=== PATIENT | male | born 1960 | race Caucasian/White ===

== ENCOUNTER 2020-08-06 14:49 | Outpatient (CLI) | payer MEDICARE, MEDICAID, SELFPAY ==
--- NOTE | ~2020-08-06 | XR_ITS ---
XR chest 2V DATE: 08/06/2020 15:20 INDICATION: Mid lower chest pain. Shortness of breath. History of COPD, congestive heart failure, ast hma, coronary artery disease TECHNIQUE: PA and lateral views COMPARISON: 04/10/2019 PA and lateral chest FINDINGS: There are multiple fractured sternal wires. Status post sternotomy/coronary artery bypass g raft surgery. Heart size appears within normal range. No hilar or mediastinal enlargement. No pulmonary infiltrate or consolidation, pleural effusion or pulmonary vascular congestion or pneumo thorax. IMPRESSION: Status post sternotomy/CABG; no active cardiopulmonary disease Reviewed, dictated and finalized at location A.
== END 2020-08-06 14:50 | disposition home or self-care (01) ==
LOC: ANHIMG 15:02
PROVIDERS: PCP Family Medicine; Visit Provider Family Medicine
DX: R10.13 Epigastric pain (principal); Z95.1 Presence of aortocoronary bypass graft
CPT/HCPCS: 71046

== ENCOUNTER 2020-09-05 01:00 | Outpatient (CLI) | payer MEDICARE, MEDICAID, SELFPAY ==
[2020-09-05 18:59] LABS: SARS-CoV-2 RNA PCR Negative
== END 2020-09-05 01:01 | disposition home or self-care (01) ==
LOC: ANHCOVIDDT 01:00
PROVIDERS: PCP Family Medicine; Visit Provider Internal Medicine Critical Care Medicine
DX: Z01.812 Encounter for preprocedural laboratory examination (principal); Z20.828 Contact with and (suspected) exposure to other viral communicable diseases
CPT/HCPCS: 87635; C9803; U0003

== ENCOUNTER 2020-09-08 08:22 | Outpatient (CLI) | payer MEDICARE, MEDICAID, SELFPAY ==
--- NOTE | 2020-10-02 16:15 | WPDSLEEPSTUD ---
Sleep Study Date of Study: 09/08/20 Ordering Provider: Nikky Lanza MD Interpreting Physician: Nikky Lanza MD Sleep Study Type: Polysomnogram Height: 1.7 m Weight: 92.986 kg Body Mass Index: 32.1 Neck Circumference: 50.8 cm Evangeline: 10 Reason for Sleep Study history of obstructive sleep apnea; recently acting out while he is asleep Sleep History Royal Schaefer Sr is a 59 yo man with a history of mild sleep apnea in the past which was not treated. He has hypertension and COPD with increasing shortness of breath. He is having a sleep study because he sleep has changed over the years, now acting out his dreams and with sleep talking. He describes his sleep as restless, with constant episodes of waking at night with heartburn, belching or coughing. He constantly has trouble sleeping with a cold. He rarely wakes up gasping for breath at night. He occasionally has breathing problems at night observed by others, occasionally sweats excessively at night, frequently wakes up with his heart pounding or beating irregularly at night, occasionally falls asleep during the day but never involuntarily or while driving. He does not have loss of muscle tone was strong emotion. He occasionally has daytime difficulties due to excessive sleepiness. he does not feel paralyzed on waking or falling asleep. He frequently has vivid dreamlike scenes upon awakening or falling asleep. He is never afraid to go to sleep. He does not have nightmares. He frequently remembers his dreams. He constantly has racing thoughts through his mind. He occasionally feels sad or depressed, frequently feels anxiety. He occasionally has muscular tension, occasionally notices parts of his body jerking, frequently kicks at night and frequently has crawling and aching feelings in his legs. He occasionally has morning jaw pain and occasionally grind his teeth during sleep. He frequently is bothered by pain during the day, occasionally is awakened by pain at night. He frequently wakes up feeling stiff in the morning was sore achy muscles and pain in the neck and spine. He has Palpitations, fatigue, takes antacids regularly, has memory problems and concentration difficulties. Normal bedtime is 9:00 p.m. falling asleep within 30 minutes to an hour typically waking 6 times at night staying awake for 3 minutes each time. When he awakens he goes to urinate. He wakes at 10:30 a.m. in the morning. We can schedule is the same. He does take short naps. A short nap is not refreshing. He is drowsy in the morning for 3 hours or longer. Habits: tobacco for 29 years, now 7 cigarettes a day; drinks a 6 pack of beer daily. [facility] Past Medical History Medical History (Updated 10/02/20 @ 16:32 by Nikky Lanza MD) Anxiety Arthritis Asthma Bronchitis CAD (coronary artery disease) CHF (congestive heart failure) COPD (chronic obstructive pulmonary disease) Dementia vascular Depression Diabetes Emphysema lung Farsightedness GERD (gastroesophageal reflux disease) GI bleed Gout History of Clostridium difficile infection History of tobacco abuse HTN (hypertension) Hyperlipidemia Hypersomnolence Inguinal hernia Irregular heart beat Kidney stone Left elbow fracture Myocardial infarction Obstructive sleep apnea Parasomnia Peripheral neuropathy Pneumonia Prepatellar bursitis right Psoriasis RLS (restless legs syndrome) Seasonal allergies Ulcer Surgical History Surgical History H/O angioplasty H/O right knee surgery History of cardiac cath Hx of CABG x4 Hx of heart artery stent x5 Social History Social History Smoking status: Current every day smoker Second hand tobacco smoke exposure: Yes Additional smoking assessment comments: 7 cigarettes per day Alcohol intake: current Gender identity (if verbalized by the patient): Male Medications
[2020-10-05 08:06] VITALS: BMI 32.1
== END 2020-09-08 08:23 | disposition home or self-care (01) ==
LOC: ANHCSM 08:22
PROVIDERS: PCP Family Medicine; Visit Provider Internal Medicine Critical Care Medicine
DX: G47.10 Hypersomnia, unspecified (principal); G47.50 Parasomnia, unspecified; G47.33 Obstructive sleep apnea (adult) (pediatric); G25.81 Restless legs syndrome; I25.10 Atherosclerotic heart disease of native coronary artery without angina pectoris; I11.0 Hypertensive heart disease with heart failure; I50.9 Heart failure, unspecified; I25.2 Old myocardial infarction; J44.9 Chronic obstructive pulmonary disease, unspecified; E11.42 Type 2 diabetes mellitus with diabetic polyneuropathy; E78.5 Hyperlipidemia, unspecified; K21.9 Gastro-esophageal reflux disease without esophagitis; L40.9 Psoriasis, unspecified; M10.9 Gout, unspecified; F17.200 Nicotine dependence, unspecified, uncomplicated; Z95.1 Presence of aortocoronary bypass graft; Z95.5 Presence of coronary angioplasty implant and graft; F03.90 Unspecified dementia, unspecified severity, without behavioral disturbance, psychotic disturbance, mood disturbance, and anxiety
CPT/HCPCS: 95810

== ENCOUNTER 2020-10-07 12:30 | Outpatient (CLI) | payer MEDICARE, MEDICAID, SELFPAY ==
--- NOTE | 2020-10-10 11:33 | WPDPFTINT ---
PFT Interpretation PFT Interpretation: This PFT met all criteria for ATS standards and reproducibility FEV/FVC post bronchodilator 57% FEV1 68% or 2.00 liters FVC 85% or 3.53 liters FVC improved by 310 ml and 10% TLC 115% RV 164% RV/TLC 53% DLCO 62% when adjusted for alveolar volume but not adjusted for hemoglobin Flow volume loops showed significant expiratory coving Impression: Moderate airflow obstruction with good response to bronchodilators, air trapping and mildly decreased diffusion capacity. This pattern is suggestive of COPD with possible Asthma component. Clinical correlation is advised.
--- NOTE | 2020-10-10 11:37 | WPDSIXMINUTE ---
Six Minute Walk Six Minute Walk: The patients O2 sats started at 98% and dropped as low as 96% Total walk distance 243.84 meters conclusion: This patient dose not qualify for home oxygen therapy.
== END 2020-10-07 12:31 | disposition home or self-care (01) ==
PROVIDERS: PCP Family Medicine; Visit Provider Internal Medicine Critical Care Medicine
DX: J43.9 Emphysema, unspecified (principal); R06.02 Shortness of breath; R94.2 Abnormal results of pulmonary function studies
CPT/HCPCS: 94060; 94618; 94726; 94729

== ENCOUNTER 2020-11-11 11:20 | Outpatient (NON) | payer MEDICARE, MEDICAID, SELFPAY ==
[2020-11-11 22:31] LABS: SARS-CoV-2 RNA PCR Positive
== END 2020-11-11 11:21 ==
LOC: ANHCOVIDDT 11:22
PROVIDERS: PCP Family Medicine; Visit Provider Family Medicine
DX: U07.1 COVID-19 (principal)
CPT/HCPCS: 87635; C9803; U0003

== ENCOUNTER 2021-02-10 12:36 | Outpatient (CLI) | payer MEDICARE, MEDICAID, SELFPAY ==
--- NOTE | ~2021-02-10 | US_ITS ---
EXAMINATION: US renal BI EXAM DATE: 02/10/2021 14:29 INDICATION: Increased urinary frequency. TECHNIQUE: Multiple grayscale and Doppler images of the kidneys were obtained (by a technologist who performed the scan) and subsequently reviewed. Comparison is made to prior examination from 06/27/2018. FINDINGS: Right kidney: There is normal contour and echogenicity. It measures 10.1 x 5.3 x 5.5 centimeters. T here are no focal renal lesions identified. There is no hydronephrosis. Left kidney: There is normal contour and echogenicity. It measures 11.5 x 4.9 x 5.8 centimeters. Th ere are no focal renal lesions identified. There is no hydronephrosis. Bladder unremarkable. Prevoid bladder volume was 91 mL, postvoid was 6 mm, minimal. IMPRESSION: 1. Sonographically unremarkable kidneys. 2. Minimal post void residual of 6 mm. Reviewed, dictated and finalized at location A.
== END 2021-02-10 12:37 | disposition home or self-care (01) ==
PROVIDERS: PCP Family Medicine
DX: R35.0 Frequency of micturition (principal)
CPT/HCPCS: 76775

== ENCOUNTER → 2021-03-12 07:22 | Outpatient (CLI) | payer MEDICARE, MEDICAID, SELFPAY ==
[2021-03-12 19:39] LABS: SARS-CoV-2 RNA PCR Negative
== END ==
PROVIDERS: PCP Family Medicine; Visit Provider Family Medicine
DX: R68.89 Other general symptoms and signs (principal); Z20.822 Contact with and (suspected) exposure to COVID-19
CPT/HCPCS: C9803; U0003; U0005

== ENCOUNTER 2021-05-24 12:51 | Emergency (ER) | payer MEDICARE, MEDICAID, SELFPAY ==
[2021-05-24 13:00] VITALS: BP 124/88; PULSE 117; RESP 16; TEMP 36; O2SAT 99
[2021-05-24 13:01] VITALS: BP 124/88; PULSE 117; RESP 16; TEMP 36; O2SAT 99
--- NOTE | 2021-05-24 13:36 | ED.SKABFB ---
HPI - Skin/Abscess/Foreign Bdy General Chief complaint: Skin/Abscess/Foreign Body Stated complaint: Rash on ankle and feet Time Seen by Provider: 05/24/21 13:17 Source: patient, family and RN notes reviewed Mode of arrival: ambulatory Limitations: no limitations History of Present Illness HPI narrative: Patient presents today complaint of painful rash to the bilateral lower legs and feet since this morning. Patient states when he went to bed last night he did not have a rash and it was present when he woke up this morning. He has been complaining of some pain to the lower legs and feet for the past approximately week. Denies itching. He has not tried any interventions at home for symptoms. Denies numbness or tingling. History of diabetes. He is on Plavix, but does not take any other blood thinners. He has been wearing tennis shoes and shorts. Denies any insect bites or stings. No new home products. No one else in the home with similar rash. MD complaint: rash Related Data Home Medications Medication Instructions Recorded Confirmed biotin 5,000 mcg SUBLINGUAL DAILY 10/09/19 10/09/19 cholecalciferol (vitamin D3) 5,000 unit PO DAILY 10/09/19 10/09/19 clopidogrel 75 mg PO DAILY 10/09/19 10/09/19 memantine 5 mg PO BID 10/09/19 10/09/19 metoprolol tartrate 50 mg PO Q12H 10/09/19 10/09/19 ropinirole 0.5 mg PO BID 10/09/19 10/09/19 tamsulosin 0.4 mg PO DAILY 10/09/19 10/09/19 albuterol sulfate INHALATION 12/22/19 atorvastatin 12/22/19 fenofibrate mg 12/22/19 finasteride mg 12/22/19 insulin glargine [Basaglar KwikPen unit SUBCUT 12/22/19 U-100 Insulin] metformin mg 12/22/19 terbinafine HCl mg 12/22/19 budesonide-formoterol HFA 160 2 puff INHALATION Q12H 08/21/20 mcg-4.5 mcg/actuation aerosol inhaler fluoxetine 20 mg capsule 40 mg PO DAILY cap 08/21/20 glipizide 5 mg tablet 15 mg PO BID tablet 08/21/20 icosapent ethyl 1 gram capsule 2 gm PO BID 08/21/20 isosorbide mononitrate 30 mg 60 mg PO DAILY 08/21/20 tablet,extended release 24 hr isosorbide mononitrate 60 mg 30 mg PO DAILY tablet 08/21/20 tablet,extended release 24 hr lorazepam 0.5 mg tablet 0.5 mg PO TID tablet 08/21/20 Becky 180 mg PO DAILY 05/24/21 05/24/21 aspirin 81 mg PO DAILY 05/24/21 05/24/21 cranberry 15,000 mg PO DAILY 05/24/21 05/24/21 empagliflozin [Jardiance] 25 mg PO DAILY 05/24/21 05/24/21 guaifenesin [Mucinex] 600 mg PO DAILY 05/24/21 05/24/21 mecobalamin (vitamin B12) 1,000 mcg SUBLINGUAL DAILY 05/24/21 05/24/21 melatonin 10 mg PO HS 05/24/21 05/24/21 nitroglycerin 0.4 mg SUBLINGUAL Q5M PRN 05/24/21 05/24/21 omeprazole 40 mg PO DAILY 05/24/21 05/24/21 ranolazine 500 mg PO BID 05/24/21 05/24/21 Allergies Allergy/AdvReac Type Severity Reaction Status Date / Time No Known Allergies Allergy Verified 05/24/21 13:22 Review of Systems Review of Systems: Narrative: CONSTITUTIONAL: Denies body aches, fever, chills, or sweats. EYES: Denies visual changes, redness, or discharge. ENT: Denies rhinorrhea, congestion, sore throat, or otalgia. CARDIOVASCULAR: Denies chest pain, palpitations, or edema. RESPIRATORY: Denies cough or dyspnea. GASTROINTESTINAL: Denies abdominal pain, nausea, vomiting, or diarrhea. GENITOURINARY: Denies dysuria or hematuria. SKIN: Bilateral lower leg and foot rash MUSCULOSKELETAL: Denies back pain, joint pain, or myalgia. NEUROLOGIC: Denies headache, numbness, tingling, or weakness. PSYCH: Denies depression or anxiety. [facility] Past Medical History Medical History Anxiety Arthritis Asthma Bronchitis CAD (coronary artery disease) CHF (congestive heart failure) COPD (chronic obstructive pulmonary disease) Dementia vascular Depression Diabetes Emphysema lung Farsightedness GERD (gastroesophageal reflux disease) GI bleed Gout History of Clostridium difficile infection History of tobacco abuse HTN (hypertension) Hyperlipidemia Hypersom
--- NOTE | 2021-05-24 14:05 | PC.NURSE ---
Chart faxed to [facility] ED at [phone].
--- NOTE | 2021-05-24 14:17 | PC.NURSE ---
Confirmation received that faxed chart was sent without issues.
== END 2021-05-24 13:48 | disposition short-term general hospital (02) ==
PROVIDERS: Emergency Provider Nurse Practitioner; PCP Family Medicine
DX: R23.3 Spontaneous ecchymoses (principal); F17.210 Nicotine dependence, cigarettes, uncomplicated; M19.90 Unspecified osteoarthritis, unspecified site; I11.0 Hypertensive heart disease with heart failure; I50.9 Heart failure, unspecified; J44.9 Chronic obstructive pulmonary disease, unspecified; F03.90 Unspecified dementia, unspecified severity, without behavioral disturbance, psychotic disturbance, mood disturbance, and anxiety; F41.9 Anxiety disorder, unspecified; F32.9 Major depressive disorder, single episode, unspecified; K21.9 Gastro-esophageal reflux disease without esophagitis; M10.9 Gout, unspecified; E78.5 Hyperlipidemia, unspecified; I25.2 Old myocardial infarction; G47.33 Obstructive sleep apnea (adult) (pediatric); E11.42 Type 2 diabetes mellitus with diabetic polyneuropathy; G25.81 Restless legs syndrome; Z95.5 Presence of coronary angioplasty implant and graft
CPT/HCPCS: 99212; G0463

== ENCOUNTER 2021-10-14 08:50 | Outpatient (CLI) | payer MEDICARE, MEDICAID, SELFPAY | END 2021-10-14 08:51 | disposition home or self-care (01) | LOC: ANHAUDIO 08:51 | PROVIDERS: PCP Family Medicine; Visit Provider Physician Assistant | DX: H93.13 Tinnitus, bilateral (principal) | CPT/HCPCS: 92557; 92567 ==

== ENCOUNTER 2021-11-10 14:08 | Outpatient (RCR) | payer MEDICARE, MEDICAID, SELFPAY | END 2021-11-10 23:59 | disposition home or self-care (01) | LOC: ANHAUDIO 14:08 | PROVIDERS: PCP Family Medicine; Visit Provider Family Medicine | DX: Z46.1 Encounter for fitting and adjustment of hearing aid (principal) | CPT/HCPCS: V5160; V5261 ==

== ENCOUNTER → 2021-12-22 02:16 | Outpatient (CLI) | payer MEDICARE, MEDICAID, SELFPAY ==
[2021-12-22 19:36] LABS: SARS-CoV-2 RNA PCR Positive
== END ==
PROVIDERS: PCP Physician Assistant; Visit Provider Physician Assistant
DX: U07.1 COVID-19 (principal)
CPT/HCPCS: C9803; U0003; U0005

== ENCOUNTER 2022-02-09 12:54 | Outpatient (CLI) | payer MEDICARE, MEDICAID, SELFPAY ==
--- NOTE | ~2022-02-09 | XR_ITS ---
EXAMINATION: XR chest 2V 02/09/2022 13:10 INDICATION: Chronic cough, shortness of breath and dizziness PROCEDURE: PA and lateral views of the chest COMPARISON: Comparison to multiple prior studies sequentially, with oldest reviewed study dated 06/26. FINDINGS: The lungs are clear. The cardiomediastinal silhouette is within normal limits. There are no pleural effusions. There is no pneumothorax suspected. Interval placement of bipolar pacemaker, lead tips in the right atrium and right ventricle respectively. There are curvilinear calcifications along the right cardiac contour, suggesting sequela of calcific pericarditis. There are multiple frac tured sternal wires. IMPRESSION: 1: NO ACUTE CARDIOPULMONARY DISEASE. Reviewed, dictated and finalized at location B.
== END 2022-02-09 12:55 | disposition home or self-care (01) ==
LOC: ANHIMG 12:58
PROVIDERS: PCP Physician Assistant; Visit Provider Physician Assistant
DX: R05.3 Chronic cough (principal)
CPT/HCPCS: 71046